=== PATIENT | female | born 2000 | race Caucasian/White ===

== ENCOUNTER 2024-11-28 21:21 | Emergency (ER) | payer OTHER, SELFPAY ==
[2024-11-28 21:38] VITALS: BP 114/63; PULSE 70; RESP 15; TEMP 36.6; O2SAT 98; BMI 34.7
[2024-11-28 21:56] LABS: Add Manual Diff / Slide Review NO; Basophils Absolute Auto 0 /uL (0-100); Basophils Percent Auto 0.5 % (0-2); Eosinophils Absolute Auto 100 /uL (0-450); Eosinophils Percent Auto 1.2 % (2-4); Hematocrit 38.7 % (36-46); Hemoglobin 13.4 g/dL (12.0-16.0); Lymphocytes Absolute Auto 2500 /uL (1100-4500); Mean Corpuscular HGB Conc 34.5 % (30-36); Mean Corpuscular Hemoglobin 31.7 PG (26-34); Mean Corpuscular Volume 91.9 fL (80-100); Monocytes Absolute Auto 500 /uL (0-900); Monocytes Percent Auto 7.5 % (3-14); Neutrophils Absolute Auto 4100 /uL (1500-7000); Neutrophils Percent Auto 55.8 % (50-75); Platelet Count 370 X10^3/uL (150-400); Red Blood Cell Count 4.21 X10^6/uL (4.0-5.2); Red Cell Distribution Width 12.8 % (11.6-14.8); White Blood Cell Count 7.3 X10^3/uL (4.5-11.0)
[2024-11-28 22:05] LABS: Alanine Aminotransferase 24 IU/L (<35); Albumin 4.4 g/dL (3.5-5.0); Albumin Globulin Ratio 1.5 (1.0-2.8); Alkaline Phosphatase 50 U/L (38-126); Aspartate Aminotransferase 26 IU/L (14-36); Bilirubin Total 0.2 mg/dL (0.2-1.3); Blood Urea Nitrogen 11 mg/dL (7-17); Calcium 9.4 mg/dL (8.4-10.2); Carbon Dioxide 29 mmol/L (22-32); Chloride 104 mmol/L (98-107); Estimated Glomerular Filt Rate > 60 mL/min (>60); Globulin 2.9 g/dL (1.7-4.1); Glucose 97 mg/dL (70-100); HEMOLYSIS < 15 (0-50); Lipase 71 U/L (23-300); Potassium 3.8 mmol/L (3.4-5.1); Sodium 139 mmol/L (137-145); Total Protein 7.3 g/dL (6.3-8.2)
[2024-11-28 23:18] VITALS: PULSE 81; O2SAT 99
[2024-11-28 23:19] VITALS: BP 133/69; PULSE 78; RESP 17; O2SAT 99
[2024-11-28 23:30] VITALS: BP 114/57; PULSE 67; O2SAT 100
--- NOTE | 2024-11-28 23:55 | EKG_ITS ---
[place] [id number] [place] [id number] Test Date: 2024-11-28 Pat Name: Renetta Mistry Department: [facility] Room: Gender: Female District Associate Judge: MARCELO Chanel : 2000 Requested By: Order Number: [id number] Reading MD: Venancio Rawls MD Measurements Intervals [place] Rate: 66 P: 50 WA: 140 QRS: 53 QRSD: 78 T: 39 QT: 404 QTc: 423 Interpretive Statements Normal sinus rhythm Electronically Signed On 11-29-2024 6:47:26 PDT by Venancio Rawls MD
--- NOTE | 2024-11-29 00:36 | ED.ABDPAIN ---
HPI - Abdominal Pain General Chief Complaint: Abdominal Pain Stated Complaint: lower right quadrant pain sent by [facility] Time Seen by Provider: 11/29/24 00:05 Source: patient Mode of arrival: Ambulatory History of Present Illness HPI narrative: Patient is a 24-year-old female history of ADHD presents today with right lower quadrant pain. She reports it has been there for a couple weeks. She is feeling nauseous decreased appetite occasionally has constipation. Over last 2 days has had increasing pain. She was seen by [facility] and was sent here to rule out appendicitis. She denies any sort of fever or chills. She has no known history ovarian cyst. No painful frequent urination. Patient History Social History Smoking Status: Never smoker Smoking Status: Never smoker Exam Initial Vital Signs Initial Vital Signs: Vital Signs Temperature 97.9 F 11/28/24 21:38 Pulse Rate 70 11/28/24 21:38 Respiratory Rate 15 11/28/24 21:38 Blood Pressure 114/63 11/28/24 21:38 Pulse Oximetry 98 11/28/24 21:38 Oxygen Delivery Method Room Air 11/28/24 21:38 GENERAL: Alert well-appearing 24-year-old female and in no acute distress. HEENT: Head atraumatic,EOMI, pupils reactive, face symmetric, moist mucous membranes CARDIOVASCULAR: Regular rate and rhythm without murmurs, rubs or gallops. RESPIRATORY: Breath sounds equal bilaterally, no wheezes rales or rhonchi. ABDOMEN: Soft, right lower quadrant pain tender no guarding no rebound EXTREMITIES: Normal range of motion, no clubbing or edema. Neurovascularly intact NEUROLOGICAL: Alert and oriented x4.Normal gait and speech. Cranial nerves II through XII grossly intact. SKIN: Warm, dry, no laceration, no petechiae, no rashes or lesions. Course Orders Ordered: ED Orders 11/28/24 21:46 Complete Blood Count AUTO DIFF Stat Comprehensive Metabolic Panel Stat Lipase Stat 11/28/24 21:48 EKG-12 Lead Stat 11/29/24 00:40 CT abdomen pelvis w con Stat US pelvic complete Stat Discontinued Medications Ondansetron HCl (Ondansetron 4 Mg/2 Ml Inj) 4 mg IV NOW PRN PRN Reason: Nausea And Vomiting Ondansetron HCl (Ondansetron 4 Mg Odt) 4 mg PO NOW PRN PRN Reason: Nausea And Vomiting Vital Signs Vital signs: Vital Signs - 8 hr 11/28/24 21:38 11/28/24 23:18 11/28/24 23:19 Temperature 97.9 F Pulse Rate 70 81 78 Respiratory Rate 15 17 Blood Pressure 114/63 Pulse Oximetry 98 99 99 Oxygen Delivery Method Room Air Room Air 11/28/24 23:19 11/28/24 23:30 11/28/24 23:30 Temperature Pulse Rate 67 Respiratory Rate Blood Pressure 133/69 114/57 L Pulse Oximetry 100 Oxygen Delivery Method 11/29/24 03:12 11/29/24 03:13 11/29/24 03:13 Temperature Pulse Rate 66 Respiratory Rate 16 Blood Pressure 102/64 Pulse Oximetry 99 98 Oxygen Delivery Method Room Air MDM - Abdominal Pain Lab Data 11/28/24 21:46 11/28/24 21:46 Labs: Lab Results 11/28/24 Range/Units 21:46 WBC 7.3 (4.5-11.0) X10^3/uL RBC 4.21 (4.0-5.2) X10^6/uL Hgb 13.4 (12.0-16.0) g/dL Hct 38.7 (36-46) % MCV 91.9 (80-100) fL MCH 31.7 (26-34) PG MCHC 34.5 (30-36) % RDW 12.8 (11.6-14.8) % Plt Count 370 (150-400) X10^3/uL Neut % (Auto) 55.8 (50-75) % Lymph % (Auto) 35.0 (25-40) % [place] % (Auto) 7.5 (3-14) % Eos % (Auto) 1.2 L (2-4) % Baso % (Auto) 0.5 (0-2) % Neut # (Auto) 4100 (6391-8105) /uL Lymph # (Auto) 2500 (3144-7487) /uL [place] # (Auto) 500 (0-900) /uL Eos # (Auto) 100 (0-450) /uL Baso # (Auto) 0 (0-100) /uL Sodium 139 (137-145) mmol/L Potassium 3.8 (3.4-5.1) mmol/L Chloride 104 (98-107) mmol/L Carbon Dioxide 29 (22-32) mmol/L BUN 11 (7-17) mg/dL Creatinine 0.61 (0.52-1.04) mg/dL Estimated GFR > 60 (>60) mL/min BUN/Creatinine Ratio 18.0 (6-22) Glucose 97 (70-100) mg/dL Calcium 9.4 (8.4-10.2) mg/dL Total Bilirubin 0.2 (0.2-1.3) mg/dL AST 26 (14-36) IU/L ALT 24 (<35) IU/L Alkaline Phosphatase 50 (38-126) U/L Total Protein 7.3 (6.3-8.2) g/dL Albumin 4.4 (3.5-5.0) g/dL Globulin 2.9 (1.7-4.1) g/dL Albumin/Globulin Ratio 1.5 (1.0-2.8) Lipase 71 (23-300) U/L Point of care testing: Point of Care Testing Test Results Negative Urine Dip Bedside Urine Glucose Negative Bedside Urine Bilirubin - Negative Bedside Urine Ketone - Negative Urine Specific [place] 1.020 Bedside Urine Occult Blood - Negative Bedside Urine pH 6.0 Bedside Urine Protein - Negative Bedside Urine Urobilinogen - Negative Bedside Urine Nitrite - Negative Bedside Urine Leukocytes - Negative Esterase Imaging Data CT scan - abdomen/pelvis: Radiologist's Impression: PROCEDURE: CT ABDOMEN PELVIS W CON INDICATIONS: rlq pain TECHNIQUE: After the administration of intravenous contrast, axial sections acquired from the lung bases to the pubic symphysis. Coronal and sagittal reformats were performed. For radiation dose reduction, the following was used: automated exposure control, adjustment of mA and/or kV according to patient size. COMPARISON: None. FINDINGS: Image quality: Diagnostic. Lower Chest: No significant findings. ABDOMEN: Liver: No solid mass. Gallbladder: No radiopaque gallstones or wall thickening. Biliary ducts: No biliary dilation. Pancreas: No ductal dilation. Spleen: Size is within normal limits. Adrenal Glands: No adrenal nodules. Kidneys and Ureters: No hydronephrosis. No solid mass. No complex renal cystic lesion which requires follow up. Stomach and Bowel: Normal colonic caliber, without significant wall thickening. Normal caliber appendix in the right lower quadrant. Peritoneum: No abnormal intraperitoneal fluid. No free air. Ventral Wall: No significant ventral hernia. Abdominal Nodes: No retroperitoneal or mesenteric adenopathy by size criteria. Vessels: Aorta and inferior vena cava are normal in size. PELVIS: Pelvic Organs: Unremarkable. Bladder: No bladder wall thickening, accounting for underdistention. Pelvic Nodes: No enlarged lymph nodes. Miscellaneous: No inguinal hernias are seen. Bones: No aggressive osseous abnormality. IMPRESSION: No acute abdominopelvic process. Normal caliber appendix. Approved by: Aga Chapa M.D.,Ph.D. on 11/29/2024 at 2:33 [place] [facility]: Radiologist's Impression: PROCEDURE: US PELVIC COMPLETE INDICATIONS: PAIN TECHNIQUE: Real-time scanning was performed of the pelvic organs, with image documentation. Additional endovaginal scanning was necessary due to incomplete visualization of the adnexal and endometrial structures by transabdominal scanning. Doppler and color flow imaging was also performed to evaluate arterial and venous blood flow to the bilateral ovaries. COMPARISON: None. FINDINGS: Uterus: Uterus is anteverted and normal in size at 6.8 x 4.9 x 4.6 cm. The myometrium is homogeneous. The endometrium measures 13.8 mm combined thickness. Ovaries: The right ovary measures 1.7 x 2.6 x 2.3 cm, with a calculated ovarian volume of 4.7 cc. The left ovary is not visualized. The right ovary has a normal sonographic appearance. Less than 12 follicles can be seen in the right ovary. Right adnexal cystic structure measuring 1.5 x 1.5 x 1.6 cm. Finding may represent hemorrhagic cyst. Doppler and color flow imaging demonstrates intact arterial and venous blood flow to the right ovary. Other: No pathologic free abdominal or pelvic fluid. IMPRESSION: No sonographic evidence of right ovarian torsion. Left ovary is not visualized. Normal sonographic appearance of the uterus and endometrial thickness. Right adnexal cystic structure measuring to 1.6 cm, possible hemorrhagic cyst. Consider follow-up pelvic ultrasound in 6-12 weeks to demonstrate stability/resolution. Approved by: Aga Chapa M.D.,Ph.D. on 11/29/2024 at 2:45 MDM Narrative Medical decision making narrative: Patient is a healthy 24-year-old female presenting today with right lower quadrant pain. It has been ongoing for couple weeks worse over last couple of days. She was tender in her lower abdomen without guarding no evidence of peritoneal signs. Blood work has been reviewed overall reassuring she has no leukocytosis electrolytes are stable no SULAIMAN Urinalysis does not show evidence of infection or She was offered Toradol but declined Imaging reviewed CT negative for acute appendicitis Ultrasound shows complex right ovarian cyst I suspect that right ovarian cyst is causing her discomfort, at this time supportive care only Discharge Plan Departure Patient Disposition: Home Clinical Impression: Cyst of right ovary Instructions: DI for Ovarian Cyst Activity Restrictions/Additional Instructions: *You have been diagnosed with right ovarian cyst *What to do: At this time right-sided pain is likely caused from an ovarian cyst Recommend repeat ultrasound in about 6 weeks *Continue to take medications as directed Tylenol 1000 mg every 6 hours for [id number] pain Motrin 600 mg every 6 hours if needed for [id number] pain *Follow up with your primary care provider in 2-3 days or call [phone] *Return to ER if you should have increasing pain nausea vomiting weakness [or] any new, worsening or concerning symptoms Stand Alone Forms: Patient Portal/API/Survey
--- NOTE | 2024-11-29 00:40 | DI.US.S_ITS ---
PROCEDURE: US PELVIC COMPLETE INDICATIONS: PAIN TECHNIQUE: Real-time scanning was performed of the pelvic organs, with image documentation. Additional endovaginal scanning was necessary due to incomplete visualization of the adnexal and endometrial structures by transabdominal scanning. Doppler and color flow imaging was also performed to evaluate arterial and venous blood flow to the bilateral ovaries. COMPARISON: None. FINDINGS: Uterus: Uterus is anteverted and normal in size at 6.8 x 4.9 x 4.6 cm. The myometrium is homogeneous. The endometrium measures 13.8 mm combined thickness. Ovaries: The right ovary measures 1.7 x 2.6 x 2.3 cm, with a calculated ovarian volume of 4.7 cc. The left ovary is not visualized. The right ovary has a normal sonographic appearance. Less than 12 follicles can be seen in the right ovary. Right adnexal cystic structure measuring 1.5 x 1.5 x 1.6 cm. Finding may represent hemorrhagic cyst. Doppler and color flow imaging demonstrates intact arterial and venous blood flow to the right ovary. Other: No pathologic free abdominal or pelvic fluid. IMPRESSION: No sonographic evidence of right ovarian torsion. Left ovary is not visualized. Normal sonographic appearance of the uterus and endometrial thickness. Right adnexal cystic structure measuring to 1.6 cm, possible hemorrhagic cyst. Consider follow-up pelvic ultrasound in 6-12 weeks to demonstrate stability/resolution. Approved by: Aga Chapa M.D.,Ph.D. on 11/29/2024 at 2:45
--- NOTE | 2024-11-29 00:40 | DI.CT.S_ITS ---
PROCEDURE: CT ABDOMEN PELVIS W CON INDICATIONS: rlq pain TECHNIQUE: After the administration of intravenous contrast, axial sections acquired from the lung bases to the pubic symphysis. Coronal and sagittal reformats were performed. For radiation dose reduction, the following was used: automated exposure control, adjustment of mA and/or kV according to patient size. COMPARISON: None. FINDINGS: Image quality: Diagnostic. Lower Chest: No significant findings. ABDOMEN: Liver: No solid mass. Gallbladder: No radiopaque gallstones or wall thickening. Biliary ducts: No biliary dilation. Pancreas: No ductal dilation. Spleen: Size is within normal limits. Adrenal Glands: No adrenal nodules. Kidneys and Ureters: No hydronephrosis. No solid mass. No complex renal cystic lesion which requires follow up. Stomach and Bowel: Normal colonic caliber, without significant wall thickening. Normal caliber appendix in the right lower quadrant. Peritoneum: No abnormal intraperitoneal fluid. No free air. Ventral Wall: No significant ventral hernia. Abdominal Nodes: No retroperitoneal or mesenteric adenopathy by size criteria. Vessels: Aorta and inferior vena cava are normal in size. PELVIS: Pelvic Organs: Unremarkable. Bladder: No bladder wall thickening, accounting for underdistention. Pelvic Nodes: No enlarged lymph nodes. Miscellaneous: No inguinal hernias are seen. Bones: No aggressive osseous abnormality. IMPRESSION: No acute abdominopelvic process. Normal caliber appendix. Approved by: Aga Chapa M.D.,Ph.D. on 11/29/2024 at 2:33
[2024-11-29 03:12] VITALS: O2SAT 99
[2024-11-29 03:13] VITALS: BP 102/64; PULSE 66; RESP 16; O2SAT 98
== END 2024-11-29 03:16 | disposition home or self-care (01) ==
PROVIDERS: Emergency Provider Emergency Medicine
DX: N83.201 Unspecified ovarian cyst, right side (principal); R11.0 Nausea; R10.31 Right lower quadrant pain
CPT/HCPCS: 36415; 74177; 76830; 76856; 80053; 81003; 81025; 83690; 85025; 93005; 93010; 93976; 99283; 99284; Q9967